=== PATIENT | female | born 1965 | race Caucasian/White ===

== ENCOUNTER 2018-10-20 09:42 | Day surgery (SDC) | payer OTHER ==
[~2018-10-20] VITALS: Ht 167.6 cm; Wt 68.3 kg
[~2018-10-20 09:42] MED LIST: BACITRACIN 50,000 UNIT ONE; BUPIVACAINE/PF-EPI 0.5% 1:200K ONE; HYDR50TA3 PO; METH750T2 PO; OXYC-432 PO; THROMBIN 5,000 UNIT VIAL TP ONE; VANCOMYCIN 1,000 MG ONE
[2018-10-20] MEDS ORDERED: LACTATED RINGERS 1,000 ML IV SCH (10:08)
[2018-10-20 10:13] VITALS: BP 141/91
[2018-10-20] MEDS ORDERED: MIDAZOLAM 1 MG/ML, 2ML ONE (10:25)
[2018-10-20] MEDS ORDERED: FENTANYL PF 250 MCG/5ML ONE (10:26)
[2018-10-20] MEDS ORDERED: DEXAMETHASONE 4 MG/ML, 1ML ONE (11:08)
[2018-10-20] MEDS ORDERED: CEFAZOLIN 1,000 MG ONE (11:08)
[2018-10-20] MEDS ORDERED: ROCURONIUM 10 MG/ML,10ML ONE (11:08)
[2018-10-20] MEDS ORDERED: SUCCINYLCHOLINE 20 MG/ML, 10ML ONE (11:08)
[2018-10-20] MEDS ORDERED: PROPOFOL 10 MG/ML, 20ML ONE (11:08)
[2018-10-20] MEDS ORDERED: OXYcodone 5 MG/5 ML ORAL.SOL UDC ONE ×2 (12:51→13:25)
[2018-10-20] MEDS ORDERED: ACETAMINOPHEN 650 MG/20.3 ML UDC ONE (12:51)
[2018-10-20] MEDS: OXYcodone 5 MG/5 ML ORAL.SOL UDC PO PRN ×2 (12:54→13:27)
[2018-10-20] MEDS ORDERED: PROMETHAZINE 25 MG/ML, 1ML IV PRN (13:00)
[2018-10-20] MEDS ORDERED: hydrALAzine 20 MG/ML, 1ML IV PRN (13:00)
[2018-10-20] MEDS ORDERED: HYDROmorphone 1 MG/ML, 1ML IV PRN (13:00)
[2018-10-20] MEDS ORDERED: METOCLOPRAMIDE 5 MG/ML, 2ML IV PRN (13:00)
[2018-10-20] MEDS ORDERED: ALBUTEROL SULFATE 2.5 MG/3 ML NPPB PRN (13:00)
[2018-10-20] MEDS ORDERED: ACETAMINOPHEN 325 MG TABLET PO PRN (13:00)
[2018-10-20] MEDS ORDERED: LABETALOL 5MG/ML, 20ML IV PRN (13:00)
[2018-10-20] MEDS ORDERED: KETOROLAC 30 MG/1 ML IV PRN (13:00)
[2018-10-20] MEDS ORDERED: FENTANYL PF 100 MCG/2ML IV PRN (13:00)
[2018-10-20] MEDS ORDERED: MEPERIDINE/PF 25MG/0.5ML IVPush PRN (13:00)
[2018-10-20] MEDS ORDERED: ONDANSETRON 2MG/ML, 2ML IVPush PRN (13:00)
[2018-10-20] MEDS ORDERED: HYDROmorphone 1 MG/ML, 1ML ONE (13:25)
== END 2018-10-20 16:15 | disposition home or self-care (01) ==
LOC: OUT 09:42 → EDSTATUS 11:30 → OUT 16:15
PROVIDERS: ATTEND Neurological Surgery
DX: M54.16 Radiculopathy, lumbar region (principal); M48.061 Spinal stenosis, lumbar region without neurogenic claudication; I10 Essential (primary) hypertension; Z72.89 Other problems related to lifestyle
CPT/HCPCS: 63030; 63035; 72100; 93005; J0330; J0690; J1100; J1170; J2250; J2405; J2704; J3010; J3370; J7120